=== PATIENT | male | born 1945 | race Caucasian/White ===

== ENCOUNTER → 2016-11-05 | Outpatient (REF) | payer OTHER, MEDICAID ==
[~2016-11-05] MED LIST: /FENO48TA PO; /ZOLP6ER OR; CRES5TAB PO; IBUP800T OR; NEUR800T PO; VICO5TAB PO
== END ==
LOC: M SFHCCLAY 10:41
PROVIDERS: ATTEND Family Medicine
DX: E78.5 Hyperlipidemia, unspecified (principal); R73.01 Impaired fasting glucose